=== PATIENT | male | born 1985 ===

== ENCOUNTER 2017-06-08 12:08 | Emergency (ER) | payer OTHER ==
--- NOTE | 2017-06-08 13:00 | ED PDOC ---
Arrival/HPI - General Chief Complaint: Lower Extremity Problem/Injury Time Seen by Provider: 06/08/17 12:25 Historian: Patient - History of Present Illness Narrative History of Present Illness (Text): 06/08/17 13:01 A 32 year old male, whose past medical history of Gouty arthritis (diagnosed 11 years ago in [facility]), presents to the emergency department complaining of bilateral knees, ankles and elbow pain. Patient reports he is currently taking prn Colchicine for outbreaks, but ran out. Patient notes to taking Motrin and Allopurinol, which he currently has prescriptions for. Patient states for the past several days he has diffuse arthralgia involving knees, ankles and elbows. Patient denies any other complaints at this time. Digital Performance Analyst: None Symptom Onset: Sudden Symptom Course: Unchanged Activities at Onset: Rest Context: Home Past Medical History - Provider Review Nursing Documentation Reviewed: Yes - Infectious Disease Hx of Infectious Diseases: None - Pulmonary Hx Asthma: Yes - Musculoskeletal/Rheumatological Hx Gout: Yes - Psychiatric Hx Substance Use: No Family/Social History - Physician Review Nursing Documentation Reviewed: Yes Family/Social History: No Known Family HX Smoking Status: Light Smoker < 10 Cigarettes Daily Hx Alcohol Use: No Hx Substance Use: No Allergies/Home Meds Allergies/Adverse Reactions: Allergies No Known Allergies Allergy (Verified 06/08/17 12:13) Home Medications: Home Meds Medication Instructions Recorded Confirmed Allopurinol [Zyloprim] 80 mg PO DAILY 06/08/17 06/08/17 Review of Systems - Physician Review All systems were reviewed & negative as marked: Yes - Review of Systems Constitutional: absent: Fevers Musculoskeletal: Arthralgias (b/l knee, b/l ankles, b/l elbows) Physical Exam Vital Signs Reviewed: Yes Vital Signs Temp Pulse Resp BP Pulse Ox 06/08/17 15:00 98.0 F 84 18 118/74 98 06/08/17 13:16 98.0 F 106 H 18 120/87 99 Appearance: Positive for: Well-Appearing, Non-Toxic, Comfortable Pain Distress: Moderate Mental Status: Positive for: Alert and Oriented X 3 - Systems Exam Head: Present: Atraumatic, Normocephalic Pupils: Present: PERRL Extroacular Muscles: Present: EOMI Conjunctiva: Present: Normal Mouth: Present: Moist Mucous Membranes Neck: Present: Normal Range of Motion Respiratory/Chest: Present: Clear to Auscultation, Good Air Exchange. No: Respiratory Distress, Accessory Muscle Use Cardiovascular: Present: Regular Rate and Rhythm, Normal S1, S2. No: Murmurs Abdomen: Present: Normal Bowel Sounds. No: Tenderness, Distention, Peritoneal Signs Back: Present: Normal Inspection Upper Extremity: Present: Other (generalized stiffness to all large joints, warm , no obvious effusion, no erythema, painful ROM in b/l elbows). No: Cyanosis, Edema Lower Extremity: Present: Other (generalized stiffness to all large joints, warm , no obvious effusion, no erythema, painful ROM in b/l knees, b/l ankles). No: Edema Neurological: Present: GCS=15, CN II-XII Intact, Speech Normal Skin: Present: Warm, Dry, Normal Color. No: Rashes Psychiatric: Present: Alert, Oriented x 3, Normal Insight, Normal Concentration Medical Decision Making ED Course and Treatment: 06/08/17 12:57 Impression: A 32 year old male with arthralgia. Plan: -- Toradol, Colchicine -- Reassess and disposition Progress Notes: On re-evaluation, patient feels better and is in no acute distress. I have discussed the results and plan with the patient, who expresses understanding. Patient in agreement with plan to be discharged home. Patient is stable for discharge. Will discharge patient with steroid taper and Allopurinol medications. Patient was instructed to follow up with physician or return if symptoms worsen or new concerning symptoms arise. 06/08/17 14:7 On re-evaluation, patient feels better and is in no acute distress. I have discussed the results and plan with the patient, who expresses understanding. Patient in agreement with plan to be discharged home. Patient is stable for discharge. Patient was instructed to follow up with physician or return if symptoms worsen or new concerning symptoms arise. - Medication Orders Current Medication Orders: Discontinued Medications Colchicine (Colocrys) 1.2 mg PO STAT STA Stop: 06/08/17 12:38 Last Admin: 06/08/17 13:08 Dose: 1.2 mg Ketorolac Tromethamine (Toradol) 60 mg IM STAT STA Stop: 06/08/17 12:36 Last Admin: 06/08/17 13:07 Dose: 60 mg MAR Pain Assessment Document 06/08/17 13:07 [facility] ([facility] 06/08/17 13:08 [id number] Pain Reassessment Is this a pain reassessment? Yes Sleep Is patient sleeping during reassessment? No Presence of Pain Presence of Pain Yes Pain Scale Used Pain Scale Used Numeric Location Left, Right or Bilateral Left Pain Location Body Site Knee Description Description Intermittent Intensity of Pain at present 10 Acceptable Level of Pain 3 Pain Behavior Grasping Site Aggravating Factors Changing Position Exercise/Activity Standing IM Administration Charges Document 06/08/17 13:07 [facility] (Rec: 06/08/17 13:08 [id number] Injection Site MAR Injection Site Left Gluteus Remington Charges for Administration # of IM Administrations 1 - Scribe Statement The provider has reviewed the documentation as recorded by the Chantel Greene Provider Scribe Attestation: All medical record entries made by the Scribe were at my direction and personally dictated by me. I have reviewed the chart and agree that the record accurately reflects my personal performance of the history, physical exam, medical decision making, and the department course for this patient. I have also personally directed, reviewed, and agree with the discharge instructions and disposition. Disposition/Present on Arrival - Present on Arrival Any Indicators Present on Arrival: No History of DVT/PE: No History of Uncontrolled Diabetes: No Urinary Catheter: No History of Decub. Ulcer: No History Surgical Site Infection Following: None - Disposition Have Diagnosis and Disposition been Completed?: Yes Diagnosis: Gout flare Disposition: HOME/ ROUTINE Disposition Time: 22:45 Patient Plan: Discharge Condition: GOOD Discharge Instructions (ExitCare): Gout (ED) Print Language: KAZAKH Prescriptions: Colchicine 0.6 mg PO DAILY #14 tablet Indomethacin [Indocin] 50 mg PO TID #15 cap Referrals: [facility] at [facility] [place] [Outside] - Follow up with primary Forms: [employer] (Sinhala)
[2017-06-08 13:16] VITALS: RESP 18; TEMP 98
[2017-06-08 18:16] VITALS: BP 118/74; PULSE 84; O2SAT 98
== END 2017-06-08 15:00 | disposition home or self-care (01) ==
LOC: ED 12:08
DX: M10.9 Gout, unspecified (principal)
CPT/HCPCS: 96372; 99283; J1885